=== PATIENT | female | born 2000 ===

== ENCOUNTER 2020-08-17 17:02 | Observation (INO) ==
[2020-08-17] MEDS ORDERED: RIVAROXABAN 15 MG TABLET PO STA (18:23)
[2020-08-17] MEDS ORDERED: ONDANSETRON 4 MG/2 ML VIAL ONE (18:34)
[2020-08-17] MEDS ORDERED: ONDANSETRON 4 MG/2 ML VIAL IV STA (18:37)
[2020-08-17 20:26] LABS: Basophils % 0.3 % (0.0-0.8); Eosinophils % 0.3 % (0.00-10.9); Hemoglobin 11.9 GM/DL (12.0-16.0); Immature Granulocytes % 0.4 %; Immature Granulocytes Absolute 0.04 #; Lymphocytes # 1.5 10*3/uL (1.4-4.0); Lymphocytes % 14.4 % (21.3-54.2); Mean Corpuscular HGB Conc 36.1 GM/DL (32-36); Mean Corpuscular Volume 83.3 FL (87-102); Mean Platelet Volume 9.6 FL (9.6-12.0); Monocytes % 8.4 % (1.7-12.7); Neutrophils % 76.2 % (38.7-73.9); Platelet Count 156 T/CUMM (130-400); Red Blood Count 3.96 MC/CUMM (3.8-5.5); Red Cell Distribution Width 12.7 % (9.3-17.3); White Blood Count 10.5 T/CUMM (4-12)
[2020-08-17 20:39] LABS: INR 1.4; PT Patient Result 15.1 SECS (9.8-11.9)
[2020-08-17 20:41] LABS: Calcium 8.8 MG/DL (8.5-10.1)
[2020-08-17] MEDS ORDERED: HEPARIN DRIP 25,000 UNITS/500 ML PREMIX IV SCH (22:00)
[2020-08-17] MEDS ORDERED: ONDANSETRON 4 MG/2 ML VIAL IV PRN (23:07)
[2020-08-17] MEDS ORDERED: diphenhydrAMINE CAP 25 MG CAPSULE PO PRN (23:07)
[2020-08-17] MEDS ORDERED: GLUCAGON 1 MG VIAL IM PRN (23:07)
[2020-08-17] MEDS ORDERED: DEXTROSE 50% 25 GM/50 ML VIAL IV PRN (23:07)
[2020-08-18] MEDS: ACETAMINOPHEN 325 MG TABLET PO PRN ×2 (01:39→08:20)
[2020-08-18 06:23] LABS: INR 1.2; PT Patient Result 12.9 SECS (9.8-11.9); Partial Thromboplastin Time 54.9 SECS (23.9-33.8)
[2020-08-18] MEDS ORDERED: MULTIVITAMIN (PRENATAL) TABLET PO SCH (09:00)
[2020-08-18 09:31] LABS: Basophils % 0.3 % (0.0-0.8); Eosinophils % 0.3 % (0.00-10.9); Hematocrit 30.7 VOL% (35.7-47.0); Immature Granulocytes % 0.3 %; Immature Granulocytes Absolute 0.03 #; Lymphocytes # 1.9 10*3/uL (1.4-4.0); Lymphocytes % 20.9 % (21.3-54.2); Mean Corpuscular HGB Conc 35.8 GM/DL (32-36); Mean Corpuscular Volume 83.9 FL (87-102); Mean Platelet Volume 10.4 FL (9.6-12.0); Neutrophils % 69.2 % (38.7-73.9); Platelet Count 163 T/CUMM (130-400); Red Blood Count 3.66 MC/CUMM (3.8-5.5); White Blood Count 8.9 T/CUMM (4-12)
[2020-08-18 09:56] LABS: Calcium 9.1 MG/DL (8.5-10.1)
[2020-08-18 11:41] LABS: INR 1.1; PT Patient Result 11.6 SECS (9.8-11.9); Partial Thromboplastin Time 55.4 SECS (23.9-33.8)
[2020-08-18 12:00] VITALS: BP 109/43
[2020-08-18] MEDS ORDERED: ENOXAPARIN 80 MG/0.8 ML SYRINGE SUBCUT ONE (14:08)
== END 2020-08-18 15:06 | disposition home or self-care (01) ==
LOC: EDUNIT# → EDBD → N.EDINP 17:02 → N.ED 17:02 → N.3E 23:52
PROVIDERS: ADMIT Internal Medicine; ATTEND Internal Medicine